=== PATIENT | female | born 2000 | race African-American/Black ===

== ENCOUNTER 2022-12-22 11:42 | Emergency (ER) | payer OTHER, SELFPAY ==
[2022-12-22] VITALS (9 sets, daily range): BP systolic 117–143; BP diastolic 78–93; PULSE 92–139; RESP 16–25; TEMP 36.5; O2SAT 94–100
--- NOTE | ~2022-12-22 | XR_ITS ---
EXAMINATION: XR chest 2V DATE: 12/22/2022 14:22 INDICATION: Cough and shortness of breath TECHNIQUE: PA and lateral views of the chest were obtained. COMPARISON: None FINDINGS: The lungs are clear with no focal airspace opacities, pulmonary edema, pleural effusion or pneumothor ax. The cardiomediastinal silhouette is normal. Visualized bones and soft tissues are unremarkable. IMPRESSION: 1. Normal chest radiograph. Reviewed, dictated and finalized at location B. IMPRESSION: 1. Normal chest radiograph.
--- NOTE | 2022-12-22 12:39 | ED.ASTHMA ---
HPI - Asthma General Chief Complaint: Asthma Stated Complaint: chest tightness Time Seen by Provider: 12/22/22 12:16 History of Present Illness HPI Narrative: Patient is a 22-year-old female with a history of asthma presenting with chest tightness. Patient states that she had symptoms of a sinus infection last week. States that over the last day or so she has had a bit of a cough. States that this morning she developed chest tightness and wheezing. States it feels like prior asthma attacks. She was seen by student health at her [employer] who gave her oral prednisone and a breathing treatment. She was then told to come somewhere with more resources. States that she continues to have a bit of a cough and chest tightness with associated shortness of breath. No fevers or chills, headache, numbness or weakness, chest pain, abdominal pain, nausea or vomiting, diarrhea, leg swelling. Related Data Allergies Allergy/AdvReac Type Severity Reaction Status Date / Time No Known Allergies Allergy Verified 12/22/22 12:15 Review of Systems Review of Systems: All systems reviewed & are unremarkable except as noted in HPI and below Exam Narrative: GENERAL: Well-appearing, well-nourished, and in no acute distress. HEAD: Normocephalic, atraumatic. EYES: PERRLA and EOMI. ENT: Nares clear, no rhinorrhea or epistaxis. Mucous membranes moist. NECK: Supple. CHEST: No respiratory distress, patient sounds tight bilaterally with scattered wheezing HEART: Regular rate and rhythm ABDOMEN: Soft, nontender, nondistended EXTREMITIES: Normal range of motion. No edema. SKIN: Warm, dry, no rash. NEURO: No focal deficits. Alert and oriented x3. PSYCH: Normal mood and affect. Course Vital Signs Vital signs: Vital Signs Temperature 97.7 F 12/22/22 12:02 Pulse Rate 104 H 12/22/22 12:02 Respiratory Rate 16 12/22/22 12:02 Blood Pressure 143/93 H 12/22/22 12:02 Pulse Oximetry 100 12/22/22 12:02 Oxygen Delivery Room Air 12/22/22 12:02 Temperature 97.7 F 12/22/22 12:02 Pulse Rate 114 H 12/22/22 17:01 Respiratory Rate 22 H 12/22/22 17:01 Blood Pressure 117/78 12/22/22 17:01 Pulse Oximetry 96 12/22/22 17:01 Oxygen Delivery Room Air 12/22/22 12:13 MDM - Asthma MDM Narrative Medical decision making narrative: 22-year-old female presenting with asthma exacerbation. Patient is a bit hypertensive and tachycardic and otherwise vitals are within normal limits. Saturating well on room air. Plan for breathing treatment, basic labs, chest x-ray, COVID swab. Blood work is unremarkable. Dimer and troponin are normal. Chest x-ray shows no acute abnormalities. No focal consolidations. No pneumothorax. Patient is negative for influenza and COVID. On reevaluation, the patient states that she feels much better. She is tolerating p.o. intake. She is asking to go home which I think is reasonable. Patient was already provided with a prescription for inhaler and steroids from urgent care. Advised that she take these as prescribed. Recommended she follow-up closely with her PCP. Appropriate return precautions given. Patient voiced understanding and is agreeable with plan. Discharged in stable condition. Differential Diagnosis Differential diagnosis: Likely Acute exacerbation, PE, Pneumonia, Pneumothorax and other (asthma exacerbation, COVID, influenza) Lab Data 12/22/22 12:48 12/22/22 12:48 Labs: Lab Results 12/22/22 12/22/22 12/22/22 Range/Units 12:47 12:48 12:48 WBC 6.8 (4.5-10.0) K/mm3 RBC 5.56 H (4.2-5.4) M/mm3 Hgb 14.7 (12.0-15.0) g/dL Hct 46.0 (37.0-47.0) % MCV 82.7 (80-100) fl MCH 26.4 (26-34) pg MCHC 32.0 (32-36) g/dl RDW 13.2 (11.5-14.5) % Plt Count 372 (150-375) k/mm3 MPV 8.8 (7.4-10.4) fl Immature Gran % (Auto) 0.6 H (0-0.5) % Neut % (Auto) 71.7 (45.5-73.1) % Lymph % (Auto) 21.5 (18.3-44.2) % Desha % (Auto) 5.
[2022-12-22] MEDS: IPRATROPIUM BR 0.02% INH SOLN 0.5 MG/2.5 ML VIAL INHALATION (12:52)
[2022-12-22] MEDS: ALBUTEROL SULFATE NEB 2.5 MG/3 ML INH 10 MG INHALATION (12:52)
[2022-12-22] MEDS: SODIUM CHLORIDE 0.9% IV 1,000 ML 999 ML IV CONT (12:53)
[2022-12-22] MEDS: methylPREDNISolone SOD SUCC 125 MG VIAL IV PUSH (12:53)
[2022-12-22 13:08] LABS: Basophils Percent Auto 0.6 % (0.2-1.2); Eosinophils Percent Auto 0.6 % (0-4.4); Hemoglobin 14.7 g/dL (12.0-15.0); Immature Granulocyte Absolute 0.04 K/mm3 (0.00-0.031); Immature Granulocyte Percent A 0.6 % (0-0.5); Lymphocytes Absolute Auto 1.47 K/mm3 (0.9-3.2); Lymphocytes Percent Auto 21.5 % (18.3-44.2); Mean Corpuscular Hemoglobin 26.4 pg (26-34); Mean Corpuscular Volume 82.7 fl (80-100); Mean Platelet Volume 8.8 fl (7.4-10.4); Monocytes Absolute Auto 0.3 K/mm3 (0.1-0.6); Neutrophils Absolute Auto 4.9 K/mm3 (1.3-6.7); Neutrophils Percent Auto 71.7 % (45.5-73.1); Platelet Count Result 372 k/mm3 (150-375); Red Blood Count 5.56 M/mm3 (4.2-5.4); Red Cell Distribution Width 13.2 % (11.5-14.5); White Blood Count 6.8 K/mm3 (4.5-10.0)
[2022-12-22 13:22] LABS: Alanine Aminotransferase 28 U/L (6-35); Albumin Level 4.5 g/dL (3.5-5.1); Alkaline Phosphatase 128 U/L (38-126); Anion Gap 8 mmol/L (8-16); Aspartate Amino Transferase 31 U/L (14-36); Bilirubin,Total 0.4 mg/dL (0.2-1.3); Blood Urea Nitrogen 9 mg/dL (7-17); Carbon Dioxide 26 mmol/L (22-30); Chloride 104 mmol/L (98-107); Estimated CRCL calculation 104 ml/min; Estimated Glomerular Filt Rate > 60; Glucose 102 mg/dL (65-110); Sodium 138 mmol/L (137-145)
[2022-12-22 13:48] LABS: Influenza A QL RT-PCR Negative (Negative); Influenza B QL RT-PCR Negative (Negative); RSV RNA, RT-PCR Negative (Negative); SARS-CoV-2 RNA PCR Negative
[2022-12-22 15:30] LABS: Troponin I < 0.012 ng/mL (0.000-0.034)
[2022-12-22 16:18] LABS: D Dimer 0.39 ug/mL (<0.48)
== END 2022-12-22 17:11 | disposition home or self-care (01) ==
PROVIDERS: Emergency Provider Emergency Medicine
DX: J45.901 Unspecified asthma with (acute) exacerbation (principal); Z20.822 Contact with and (suspected) exposure to COVID-19
CPT/HCPCS: 36415; 71046; 80053; 84484; 85025; 85380; 87637; 94640; 96361; 96374; 99284; J2930; J7030

== ENCOUNTER 2023-04-02 22:38 | Emergency (ER) | payer OTHER, SELFPAY ==
--- NOTE | ~2023-04-02 | CT_ITS ---
Non-contrast Head CT History: Head trauma Technique: Axial non-contrast imaging of the brain was performed. Dose reduction technique was used on this scan by utilizing automated exposure control and iterative reconstruction technique. The dose -length product (DLP) was 529.67 mGy-cm. Findings: There is no evidence of intracranial hemorrhage, mass lesion, or acute infarct. Brain par enchyma appears normal. The ventricles and subarachnoid spaces are normal in size. The calvarium ap pears normal. The visualized paranasal sinuses and mastoid air cells are clear. Impression: No significant abnormality seen. Reviewed, dictated and finalized at location . Impression: No significant abnormality seen.
[2023-04-02 22:41] VITALS: BP 130/89; PULSE 85; RESP 14; TEMP 36.6; O2SAT 98
[2023-04-02 23:47] VITALS: BP 118/90; PULSE 100; RESP 15; O2SAT 100
[2023-04-03] MEDS: ONDANSETRON HCL ODT 4 MG TABLET PO (00:42)
--- NOTE | 2023-04-03 01:39 | ED.GENADULT ---
HPI - General Adult General Chief complaint: Head Injury Stated complaint: concussion, hit head on metal bar Time Seen by Provider: 04/02/23 23:38 History of Present Illness HPI narrative: This is a 23-year-old female presenting ED with with a chief complaint of head trauma. Patient says she was at a store she bent over and stood up and hit her head on a pole. She not lose consciousness but she has had recurrent vomiting since the incident. She also notes that she has light sensitivity. No other symptoms. She is not on blood thinners. She has no medical problems. No neurologic findings. Related Data Allergies Allergy/AdvReac Type Severity Reaction Status Date / Time No Known Allergies Allergy Verified 12/22/22 12:15 Exam Narrative: APPEARANCE: No apparent distress. Head: atraumatic. EYES: EOMI, NOSE: Atraumatic NECK: Trachea midline RESPIRATORY: No increased rate of breathing CARDIOVASCULAR: RRR, ABDOMINAL: Non-distended MUSCULOSKELETAl: No obvious deformities NEURO: Alert.Cranial nerves 2-12 grossly intact. Sensation light touch, motor function cerebellar function intact for 4 extremities. Gait exam was normal. SKIN:: Warm, dry. Normal color PSYCHIATRIC: Normal affect Course Vital Signs Vital signs: Vital Signs Temperature 97.9 F 04/02/23 22:41 Pulse Rate 85 04/02/23 22:41 Respiratory Rate 14 04/02/23 22:41 Blood Pressure 130/89 04/02/23 22:41 Pulse Oximetry 98 04/02/23 22:41 Oxygen Delivery Room Air 04/02/23 22:41 Temperature 97.9 F 04/02/23 22:41 Pulse Rate 100 04/02/23 23:47 Respiratory Rate 15 04/02/23 23:47 Blood Pressure 118/90 04/02/23 23:47 Pulse Oximetry 100 04/02/23 23:47 Oxygen Delivery Room Air 04/02/23 22:41 Medical Decision Making [facility] Narrative Medical decision making narrative: -Presentation: 23-year-old presenting after head trauma. She has had recurrent vomiting. No other findings. -DDX includes but is not limited to: traumatic head bleed, concussion -Co-morbidities complicating care: none -Social determinants of health: patient works multiple jobs. -External Chart Review: none -Hx from independent Sources: TASHA Toth at bedside -friends -Discussion of Management/Consultants: none -Independent interpretation of studies: CT head was normal Dx tests considered but not ordered: none -Procedures: none -Interventions: Zofran 4 mg -Shared decision making / Disposition: patient was educated on concussion symptoms and given primary care follow-up -RX Zofran ODT Vital Signs Vital Signs: Vital Signs Temperature 97.9 F 04/02/23 22:41 Pulse Rate 85 04/02/23 22:41 Respiratory Rate 14 04/02/23 22:41 Blood Pressure 130/89 04/02/23 22:41 Pulse Oximetry 98 04/02/23 22:41 Oxygen Delivery Room Air 04/02/23 22:41 Temperature 97.9 F 04/02/23 22:41 Pulse Rate 100 04/02/23 23:47 Respiratory Rate 15 04/02/23 23:47 Blood Pressure 118/90 04/02/23 23:47 Pulse Oximetry 100 04/02/23 23:47 Oxygen Delivery Room Air 04/02/23 22:41 Discharge Plan Discharge Clinical Impression: Closed head injury Patient Disposition: Home, Self-Care Condition: Guarded Prognosis Instructions: Antibiotic Form, Concussion (ED) Additional Instructions: You were seen in the emergency department for a concussion symptoms. Please follow-up your primary care physician. Please return if developed altered mental status, inability to move 1 year limbs or feel like your condition is getting worse. Prescriptions: New ondansetron 4 mg tablet,disintegrating 4 mg PO Q8H PRN (Reason: nausea and vomiting) Qty: 30 0RF Follow-up/Referrals: PHYSICIAN NOT ON STAFF,NONSTAFF [Primary Care Provider] -
[2023-04-03 01:52] VITALS: BP 126/87; PULSE 87; RESP 12; O2SAT 99
== END 2023-04-03 01:56 | disposition home or self-care (01) ==
PROVIDERS: Emergency Provider Emergency Medicine
DX: S09.90XA Unspecified injury of head, initial encounter (principal); W22.09XA Striking against other stationary object, initial encounter
CPT/HCPCS: 70450; 99284; A9270